=== PATIENT | female | born 1985 | race Hispanic/Latino ===

== ENCOUNTER 2022-02-18 08:00 | Emergency (ER) | payer OTHER, SELFPAY ==
[~2022-02-18] VITALS: Ht 152.4 cm; Wt 84.4 kg
[2022-02-18 08:53] LABS: APPEARANCE,URINE Clear (CLEAR); BILIRUBIN,URINE Negative (NEGATIVE); COLOR,URINE Yellow (YELLOW); GLUCOSE, URINE (UA) Negative (NEGATIVE); KETONES,URINE Negative (NEGATIVE); LEUKOCYTE ESTERASE ,URINE Trace (NEGATIVE); NITRATE,URINE Negative (NEGATIVE); OCCULT BLOOD,URINE Trace (NEGATIVE); PROTEIN,URINE Negative (NEGATIVE); UROBILINOGEN,URINE 0.2 mg/dL (0.2-1.0)
[2022-02-18 08:58] LABS: HCG,QUAL RESULT NEGATIVE (NEGATIVE)
[2022-02-18] MEDS ORDERED: KETOROLAC 60 MG VIAL (30MG/ML) IM SCH (09:00)
[2022-02-18 09:09] LABS: BACTERIA,URINE Rare /HPF (None Seen); RBC,URINE 0-1 /HPF (0-1); SQUAMOUS EPITHELIAL CELL,UR Rare /HPF (0-2)
[2022-02-18] MEDS ORDERED: METH-662 PO (09:42)
[2022-02-18] MEDS ORDERED: ACET-2079 PO (09:42)
[2022-02-18 09:49] VITALS: BP 121/72
== END 2022-02-18 09:57 | disposition home or self-care (01) ==
LOC: EDH 08:00
DX: M54.50 Low back pain, unspecified (principal); Z79.1 Long term (current) use of non-steroidal anti-inflammatories (NSAID)
CPT/HCPCS: 81001; 81025; 87077; 87088; 87186; 96372; 99283; J1885

== ENCOUNTER 2022-06-03 11:32 | Emergency (ER) | payer OTHER ==
[~2022-06-03] VITALS: Ht 152.4 cm; Wt 85.3 kg
[~2022-06-03 11:32] MED LIST: ACET-2079 PO; METH-662 PO
[2022-06-03] MEDS ORDERED: SOLU-MEDROL 125MG VIAL IM ONE (12:00)
[2022-06-03] MEDS ORDERED: DIPHENHYDRAMINE HCL 25 MG CAPSULE PO ONE (12:00)
[2022-06-03] MEDS ORDERED: FAMOTIDINE 20MG TAB PO ONE (12:00)
[2022-06-03] MEDS ORDERED: D-ME1POW16 PO (12:55)
[2022-06-03] MEDS ORDERED: OSEL75 PO (12:55)
[2022-06-03] MEDS ORDERED: OSELTAMIVIR PHOSPHATE 75 MG CAP PO SCH (13:00)
[2022-06-03 13:21] VITALS: BP 113/76
== END 2022-06-03 13:20 | disposition home or self-care (01) ==
LOC: EDH 11:32
DX: U07.1 COVID-19 (principal); J11.1 Influenza due to unidentified influenza virus with other respiratory manifestations; Z79.899 Other long term (current) drug therapy
CPT/HCPCS: 99284; 87635; 87804 ×2; 96372; Q0163; C9803; J2930

== ENCOUNTER 2022-07-05 19:39 | Emergency (ER) | payer OTHER ==
[~2022-07-05] VITALS: Ht 152.4 cm; Wt 83.9 kg
[~2022-07-05 19:39] MED LIST changes: +D-ME1POW16 PO; +OSEL75 PO
[2022-07-05 20:07] LABS: BASOPHILS % (AUTO) 0.5 % (0.0-5.0); EOSINOPHILS % (AUTO) 0.8 % (0.0-8.0); HEMATOCRIT 37.6 % (36-48); LYMPHOCYTES % (AUTO) 23.5 % (21.0-51.0); MEAN CORPUSCULAR HEMOGLOBIN 28.4 pg (27.0-33.0); MEAN CORPUSCULAR VOLUME 83.4 fL (79-99); NEUTROPHILS % (AUTO) 65.8 % (40.0-77.0); PLATELET COUNT (AUTO) 313 K/uL (130-400); RED BLOOD CELL COUNT(AUTO) 4.51 MIL/uL (4.00-5.50); RED CELL DISTRIBUTION WIDTH 13.2 % (11.0-15.5); WHITE BLOOD COUNT (AUTO) 12.7 K/uL (4.8-10.8)
[2022-07-05 20:10] LABS: APPEARANCE,URINE SL CLOUDY (CLEAR); BILIRUBIN,URINE NEGATIVE (NEGATIVE); COLOR,URINE YELLOW (YELLOW); GLUCOSE, URINE (UA) NEGATIVE (NEGATIVE); KETONES,URINE 5 mg/dL (NEGATIVE); LEUKOCYTE ESTERASE ,URINE NEGATIVE (NEGATIVE); NITRATE,URINE NEGATIVE (NEGATIVE); OCCULT BLOOD,URINE MODERATE (NEGATIVE); PROTEIN,URINE NEGATIVE (NEGATIVE); UROBILINOGEN,URINE 0.2 mg/dL (0.2-1.0)
[2022-07-05 20:12] LABS: HCG,QUALITATIVE URINE NEGATIVE (NEGATIVE)
[2022-07-05 20:17] LABS: CREATININE 0.8 mg/dL (0.5-1.5); POTASSIUM 3.4 mmol/L (3.5-5.1)
[2022-07-05 20:20] LABS: BACTERIA,URINE Few /HPF (None Seen); MUCUS,URINE Few LPF (None Seen); SQUAMOUS EPITHELIAL CELL,UR Moderate /HPF (0-2)
[2022-07-05 20:21] LABS: ALBUMIN 3.2 g/dL (3.5-5.0); TOTAL PROTEIN, SERUM 8.1 g/dL (6.0-8.3)
[2022-07-05] MEDS ORDERED: 0.9%NACL 1000ML 1,000 ML IV ONE (20:30)
[2022-07-05] MEDS ORDERED: ONDANSETRON 4MG INJ ONE (20:30)
[2022-07-05] MEDS ORDERED: MORPHINE 4 MG SYG IVP ONE (20:30)
[2022-07-05] MEDS ORDERED: ONDANSETRON 4MG INJ IVP ONE (20:30)
[2022-07-05] MEDS ORDERED: MORPHINE 4 MG SYG ONE (20:30)
[2022-07-05] MEDS ORDERED: IOHEXOL 350 MG/ML 100ML INFUS..BTL IV ONE (20:31)
[2022-07-05] MEDS ORDERED: FAMOTIDINE 20MG VIAL IV ONE (21:06)
[2022-07-05] MEDS ORDERED: DiphenhydrAMINE HCL 50 MG/ML VIAL ONE (21:06)
[2022-07-05] MEDS ORDERED: ONDA4TAB10 PO (21:20)
[2022-07-05] MEDS ORDERED: CIPR-278 PO (21:20)
[2022-07-05] MEDS ORDERED: METR-172 PO (21:20)
[2022-07-05] MEDS ORDERED: TRAM50TA2 PO (21:20)
[2022-07-05 21:50] VITALS: BP 118/64
== END 2022-07-05 22:00 | disposition home or self-care (01) ==
LOC: EDH 19:39
DX: K57.30 Diverticulosis of large intestine without perforation or abscess without bleeding (principal); E66.9 Obesity, unspecified; Z68.36 Body mass index [BMI] 36.0-36.9, adult
CPT/HCPCS: 99285; 74177; 96374; 96375; 96361; 80053; 83690; 85025; 81001; 81025; 36415; J1200; J3490; J7030; J2405; J2270; Q9967

== ENCOUNTER 2025-06-09 22:35 | Emergency (ER) | payer BC, OTHER ==
[~2025-06-09] VITALS: Ht 152.4 cm; Wt 89.4 kg
[~2025-06-09 22:35] MED LIST changes: +CIPR-278 PO; +METR-172 PO; +ONDA-243 PO; +TRAM50TA2 PO
--- NOTE | 2025-06-09 22:42 | NUR ---
SEPSIS ALERT NOT CALLED PER FELICITA PAREKH
--- NOTE | 2025-06-09 22:53 | ERN ---
ED Note History of Present Illness Stated Complaint: C/O COUGH W/PHLEGM, COVID +, BODYACHES Chief Complaint: Cough Time Seen by MD: 22:37 Time Seen by Midlevel: 22:37 Dictation: The patient is a 39-year-old female with no past medical history who presents to the emergency department with complaints of productive green cough, nasal congestion, fevers onset Friday. Patient reports she was seen at an urgent care was diagnosed with COVID-19 infection. Patient was giving albuterol treatment and doxycycline. Allergies: Coded Allergies: No Known Allergies (Unverified Allergy, Unknown, 02/18/22) Home Meds Active Scripts Tramadol HCl (Ultram) 50 Mg Tab, 50 MG PO Q6H PRN for PAIN, #15 TAB Prov:[facility] 07/05/22 Ondansetron (Ondansetron Odt) 4 Mg Tab.rapdis, 4 MG PO TID PRN for NAUSEA/VOMITING, #15 TAB Prov:JUNAID [facility] 07/05/22 Metronidazole (Metronidazole) 500 Mg Tablet, 500 MG PO BID, #20 TAB Prov:F[facility]UNAID [facility] 07/05/22 Ciprofloxacin HCl (Cipro) 500 Mg Tablet, 1 TAB PO BID for 10 Days, #20 TAB 0 Refills Prov:JUNAID [facility] 07/05/22 D-Methorphan/PE/Acetaminophen (Theraflu Ms Severe Cold Pckt) 1 Each Powd.pack, 1 EACH PO QIDP, #20 PACK Prov:CHANA CHAPA 06/03/22 Oseltamivir Phosphate (Tamiflu) 75 Mg Cap, 75 MG PO BID for 5 Days, #10 CAP Prov:CHANA CHAPA 06/03/22 Methocarbamol (Robaxin) 750 Mg Tab, 1-2 TAB PO TIDP PRN for MUSCLE SPASMS, #30 TAB 0 Refills Prov:SHELBY HILL MD 02/18/22 Acetaminophen with Codeine (Acetaminophen-Cod #3 Tablet) 1 Each Tablet, 1-2 TAB PO Q6H PRN for SEVERE PAIN (7-10), #12 TAB 0 Refills Prov:SHELBY HILL MD 02/18/22 Past Medical History Past Medical History: No Pertinent History Additional Past Medical Hx: Obese Surgical History: None Family History: Negative Social History: Other LMP: May 22, 2025 RN Note Reviewed/Agreed w/PFSH: Yes Review of System Dictation Constitutional: Negative for fever,chills, and weight loss Eyes: Negative for injury, pain,redness, and discharge ENT: Negative for injury,pain or swelling Cardiovascular: Negative for chest pain, palpitations, and edema Respiratory: Negative for wheezing, positive for shortness of breath, cough Abdomen/GI: Negative for abdominal pain, nausea, vomiting, diarrhea, and constipation Back: Negative for injury and pain : Negative for injury, bleeding and discharge MS/Extremity: Negative for injury and deformity Skin: Negative for rash, and discoloration Neuro: Negative for headache, weakness, numbness, tingling, and seizure Psych: Negative for suicide ideation, homicidal ideation, and hallucinations Initial Vital Sign VS Vital Signs Date Time Temp Pulse Resp B/P (MAP) Pulse Ox O2 Delivery O2 Flow Rate FiO2 06/09/25 22:37 102.0 111 20 143/81 96 Room Air 06/09/25 23:08 0 21 Physical Exam Dictation Vital Signs reviewed General Appearance: Alert, oriented x 3, no acute distress, well developed, nourished. Head and Face: non-traumatic. Eyes: PERRL, pink conjunctivas, eyelid no trauma, anterior chamber with arcus senilis. Ears: Pinnas intact and no signs of trauma or erythema ear canals clear and no discharge TM no erythema Nose: No discharge, no bleeding. Oropharynx: Mouth normal, tongue pink. pharynx clear,no erythema, tonsils no exudates, no abscesses noted, mucous membrane moist Neck: Supple, non-tender, no thyromegaly, no masses, no JVD, no bruits Breast:Deferred Chest:No tenderness, no crepitus, no paradoxical movement, no retractions Lungs:Clear, well-ventilated, symmetric, no rales, no wheezing, no rhonchi, no stridor, good breath sounds bilaterally Heart: Regular rate, regular rhythm, no murmur, no gallops Vascular: no peripheral edema, Abdomen: Soft, positive bowel sounds, nondistended, no guarding, nontender, no rebound, no masses no hepatomegaly, no splenomegaly, no Rodriguez's sign, no hernias. Rectal: Deferred Genital: Deferred Neurological: Normal speech, motor function intact, sensory function intact Musculoskeletal: Neck nontender, full range of motion, back nontender, full range of motion, Extremities: nontender, full range of motion Skin: Color pink, dry, no turgor, no rash, no lacerations, no abrasions, no contusions. Lymphatic: Deferred Results (Laboratory/Radiology) Laboratory/Radiology Laboratory Tests Test 06/09/25 23:10 White Blood Count 8.7 K/uL (4.8-10.8) Red Blood Count 4.30 MIL/uL (4.00-5.50) Hemoglobin 12.4 g/dL (12.0-16.0) Hematocrit 38.0 % (36-48) Mean Corpuscular Volume 88.4 fL (79-99) Mean Corpuscular Hemoglobin 28.8 pg (27.0-33.0) Mean Corpuscular Hemoglobin Concent 32.6 g/dL (32.0-36.0) Red Cell Distribution Width 13.7 % (11.0-15.5) Platelet Count 284 K/uL (130-400) Mean Platelet Volume 9.4 fL (7.5-10.5) Immature Granulocyte % (Auto) 0.5 % (0-1) Neutrophils (%) (Auto) 69.4 % (40.0-77.0) Lymphocytes (%) (Auto) 17.8 % (21.0-51.0) L Monocytes (%) (Auto) 11.6 % (3.0-13.0) Eosinophils (%) (Auto) 0.1 % (0.0-8.0) Basophils (%) (Auto) 0.6 % (0.0-5.0) Neutrophils # (Auto) 6.0 K/uL (1.8-7.7) Lymphocytes # (Auto) 1.6 K/uL (1.0-4.8) Monocytes # (Auto) 1.0 K/uL (0.1-1.0) Eosinophils # (Auto) 0.01 K/uL (0.00-0.70) Basophils # (Auto) 0.05 K/uL (0.00-0.20) Absolute Immature Granulocyte (auto 0.04 K/uL (0-1) Nucleated Red Blood Cells 0.0 % (0.0-0.19) Sodium Level 137 mmol/L (136-145) Potassium Level 3.5 mmol/L (3.5-5.1) Chloride Level 102 mmol/L (101-111) Carbon Dioxide Level 30 mmol/L (21-32) Blood Urea Nitrogen 6 mg/dL (7-18) L Creatinine 0.6 mg/dL (0.5-1.0) Glomerular Filtration Rate Calc 118 mL/min (>90) Random Glucose 101 mg/dL (70-105) Total Calcium 8.4 mg/dL (8.5-10.1) L REASON: cough ORDERING PHYSICIAN: JUANCARLOS KNIGHT PROCEDURE: CXR1VW - CHEST 1VW EXAM: CR Chest, 1 view CLINICAL HISTORY: Cough. COMPARISON: None provided. FINDINGS: The lungs show no infiltrates or other acute findings. No pleural effusion or pneumothorax. The cardiomediastinal silhouette is within normal limits. No acute osseous abnormality. IMPRESSION: No acute cardiopulmonary process is evident. /[place] Labs Reviewed?: Yes ED Course ED Course Orders Procedure Category Date Status Time Cbc With Differential LAB 06/09/25 Complete 22:46 ,Urine Test LAB 06/09/25 Logged 22:46 Urinalysis Profile LAB 06/09/25 Logged 22:46 0.9%Nacl 1000ml (Ns PHA 06/09/25 Complete 1000ml) 23:00 Chest 1vw RAD 06/09/25 Resulted 22:46 Basic Metabolic Panel LAB 06/09/25 Complete 22:46 Acetaminophen 500mg PHA 06/09/25 Complete Tab (Tylenol 500mg T 23:00 Guaifenesin-Codeine PHA 06/09/25 Complete Syrup 5ml (Robitussi 23:00 Current Medications Medications (Trade) Dose Ordered Sig/Pierce Route PRN Reason Start Time Stop Time Status Last Admin Dose Admin Acetaminophen (TYLenol 500MG TAB) 1,000 mg ONCE ONCE PO 06/09/25 23:00 06/09/25 23:02 DC 06/09/25 23:07 Guaifenesin/ Codeine Phosphate (RobiTUSSin AC 5 ML SYRUP) 10 ml ONCE ONCE PO 06/09/25 23:00 06/09/25 23:02 DC 06/09/25 23:06 Sodium Chloride 1,000 ml @ 0 mls/hr ONCE ONCE IV 06/09/25 23:00 06/09/25 23:01 DC 06/09/25 23:06 Vital Signs Date Time Temp Pulse Resp B/P (MAP) Pulse Ox O2 Delivery O2 Flow Rate FiO2 06/10/25 00:02 100.8 86 17 115/69 98 Room Air* 0 21 06/09/25 23:08 102.0 94 20 118/67 99 Room Air* 0 21 06/09/25 23:07 102.0 06/09/25 22:37 102.0 111 20 143/81 96 Room Air Medical Decision Making MDM The patient is a 39-year-old female with no past medical history who presents to the emergency department with complaints of productive green cough, nasal congestion, fevers onset Friday. Patient reports she was seen at an urgent care was diagnosed with COVID-19 infection. Patient was giving albuterol treatment and doxycycline. CBC showed no leukocytosis, no anemia, chemistry showed no electrolyte imbalance, normal renal function, chest x-ray showed no acute pathology. Patient has symmetry improved. Reports feeling better after medication administration. On physical exam patient is in no acute distress, clear lung sounds. Patient tested positive for COVID-19 infection. Patient will be discharged to follow up with PCP. Differential diagnosis: Upper respiratory infection, pneumonia, electrolyte imbalance, dehydration Need for hospitalization: Patient does not meet criteria for hospitalization. There are no social concerns with this patient. DX & DISP Disposition: Discharge Departure Impression: Primary Impression: Viral URI with cough Condition: Stable Additional Instructions: Your labs were unremarkable. Your chest x-ray did not show any pneumonia. Please follow up with your primary doctor. You can take Tylenol as needed for the fever. Continue oral hydration at home. FOLLOW-UP WITH PRIMARY CARE PROVIDER IN 1 TO 2 DAYS. TAKE MEDICATIONS DIREC MIKI HERE IN THE EMERGENCY ROOM. OKAY TO CONTINUE HOME MEDICATIONS UNLESS OTHERWISE DISCUSSED DURING YOUR VISIT IN THE EMERGENCY ROOM TODAY. RETURN TO YOUR NEAREST EMERGENCY ROOM IF SYMPTOMS WORSEN OR IF THERE IS NO IMPROVEMENT. CALL 911 IF YOU NEED IMMEDIATE ASSISTANCE. TAKE TYLENOL IYNG-LUM-DINDPOT NEEDED AND IF NO CONTRAINDICATIONS ARE PRESENT. INCREASE ORAL HYDRATION. A WOUND CULTURE OR URINE CULTURE WAS ORDERED HERE IN THE EMERGENCY ROOM DEPARTMENT PLEASE FOLLOW-UP WITH PRIMARY CARE PROVIDER AND ADVISE THEM TO GET REPEAT PORTS FROM OUR FACILITY. IF YOU HAD ANY JOSE DANIEL WRAP/SPLINTS THAT WERE APPLIED HERE, PLEASE DO NOT REMOVE THEM UNTIL YOU SEE YOUR PRIMARY CARE OR SPECIALTY. Referrals: LINDA DEAL (PCP) Time of Disposition: 00:15 I have reviewed the case, and I agree with, Diagnosis and Plan JUANCARLOS KNIGHT Jun 09, 2025 22:53
[2025-06-09] MEDS: 0.9%NACL 1000ML 1,000 ML IV ONE (23:06)
[2025-06-09 23:19] LABS: IMMATURE GRANULOCYTE ABSOLUTE 0.04 K/uL (0-1); NUCLEATED RED BLOOD CELLS 0.0 % (0.0-0.19); PLATELET COUNT (AUTO) 284 K/uL (130-400); RED BLOOD CELL COUNT(AUTO) 4.30 MIL/uL (4.00-5.50); RED CELL DISTRIBUTION WIDTH 13.7 % (11.0-15.5); WHITE BLOOD COUNT (AUTO) 8.7 K/uL (4.8-10.8)
[2025-06-09 23:29] LABS: CREATININE 0.6 mg/dL (0.5-1.0); GLOMERULAR FILTR. RATE CALC 118.0 mL/min (>90); GLUCOSE,RANDOM 101.0 mg/dL (70-105); SODIUM SERUM 137.0 mmol/L (136-145); UREA NITROGEN, BLOOD 6.0 mg/dL (7-18)
--- NOTE | 2025-06-09 23:35 | HMCIMG ---
EXAM: CR Chest, 1 view CLINICAL HISTORY: Cough. COMPARISON: None provided. FINDINGS: The lungs show no infiltrates or other acute findings. No pleural effusion or pneumothorax. The cardiomediastinal silhouette is within normal limits. No acute osseous abnormality. IMPRESSION: No acute cardiopulmonary process is evident. /[place]
[2025-06-09 23:56] VITALS: TEMP 100.8
[2025-06-10 00:32] VITALS: BP 108/65; PULSE 82; RESP 19; TEMP 99.2; O2SAT 97
== END 2025-06-10 00:45 | disposition home or self-care (01) ==
LOC: EDH 22:35
DX: J06.9 Acute upper respiratory infection, unspecified (principal); B97.89 Other viral agents as the cause of diseases classified elsewhere; E66.9 Obesity, unspecified
CPT/HCPCS: 99283; 96360; 71045; 80048; 85025; 36415; J7030